=== PATIENT | female | born 1955 | race Hispanic/Latino ===

== ENCOUNTER → 2024-10-30 | Outpatient (REF) | payer MEDICARE ==
[~2024-10-30] MED LIST: LIDOCAINE HCL 1% 30ML-PF VIAL ONE
== END ==
LOC: US 07:55
PROVIDERS: ATTEND Nurse Practitioner Family
DX: E04.2 Nontoxic multinodular goiter (principal)
CPT/HCPCS: 10005; 88172; 88173; 88305; J2003